=== PATIENT | female | born 1950 | race Caucasian/White ===

== ENCOUNTER → 2018-12-03 | Outpatient (CLI) | payer MEDICARE, BC ==
[~2018-12-03] MED LIST: ASPI81EC PO; ATOR40TA PO; CALCAVITD PO; CIPR500 PO; EZET10 PO; FAMO20 PO; FLAX PO; IBUP600 PO; INSULANI SC; INSULANPEN SC; LISI10 PO; METF500 PO; MULVITB PO; MULVITMINF PO; Norco 5-325 Ta1 EACH PO; PHENA200 PO; REPATHA SU140 MG/1 M SQ; RXHYDACE PO; SUPER OMEGA PO; TOUJEO SOL300 UNIT/1 SQ; TRULICITY0.75 MG/0. INJ; Zofran Odt4 MG SL
== END | disposition home or self-care (01) ==
LOC: PLD 08:02 → LAB SHORT 08:02
DX: L57.0 Actinic keratosis (principal)
CPT/HCPCS: 88305

== ENCOUNTER → 2018-12-30 | Outpatient (CLI) | payer MEDICARE, BC | END | disposition home or self-care (01) | LOC: PLD 14:22 → LAB SHORT 14:22 | DX: L57.0 Actinic keratosis (principal); C44.629 Squamous cell carcinoma of skin of left upper limb, including shoulder | CPT/HCPCS: 88305 ==

== ENCOUNTER 2020-01-28 00:50 | Emergency (ER) | payer MEDICARE, BC ==
[~2020-01-28] VITALS: Ht 157.5 cm; Wt 77.1 kg
[2020-01-28] MEDS ORDERED: REPATHA SU140 MG/1 M SC (01:29)
[2020-01-28] MEDS ORDERED: TOUJEO SOL300 UNIT/1 SC (01:30)
[2020-01-28] MEDS ORDERED: LISI20 PO (01:31)
[2020-01-28] MEDS ORDERED: Metformin HCl750 MG PO (01:31)
[2020-01-28] MEDS ORDERED: EUTHYROX25 MC1 PO (01:32)
[2020-01-28 01:50] LABS: Source, Urine Clean Catch
[2020-01-28 01:55] LABS: Bilirubin, Urine Neg (Neg); Blood, Urine 5+ (Neg); Glucose Qualitative, Urine Neg (Neg); Ketones, Urine Neg (Neg); Leukocyte Esterase, Urine 1+ (Neg); Nitrite, Urine Pos (Neg); Protein, Urine 3+ (Neg); Specific Gravity, Urine 1.025 (1.003-1.022); Urobilinogen, Urine NORM (Normal)
[2020-01-28 02:01] LABS: Appearance, Urine Hazy (Clear); Color, Urine Yellow (P-Yellow)
[2020-01-28 02:05] LABS: BASOPHILS ABSOLUTE AUTO 0.04 K/mm3 (0.00-0.23); BASOPHILS PERCENT AUTO 0 % (0-2); EOSINOPHILS ABSOLUTE AUTO 0.09 K/mm3 (0.00-0.68); EOSINOPHILS PERCENT AUTO 1 % (0-6); Hematocrit 40.1 % (33.0-51.0); Hemoglobin 13.1 g/dL (11.5-16.0); IMMATURE GRAN ABSOLUTE AUTO 0.06 K/mm3 (0.00-0.10); IMMATURE GRAN PERCENT AUTO 0 % (0-1); LYMPHOCYTES PERCENT AUTO 16 % (21-46); MONOCYTES ABSOLUTE AUTO 0.72 K/mm3 (0.16-1.47); MONOCYTES PERCENT AUTO 5 % (4-13); Mean Corpuscular HGB 31.3 pg (26.0-34.0); Mean Corpuscular HGB Conc 32.7 g/dL (31.5-36.5); Mean Corpuscular Volume 96 fL (80-100); Mean Platelet Volume 9.8 fL (9.1-12.4); NEUTROPHILS PERCENT AUTO 78 % (41-73); Platelet Count 221 K/mm3 (150-400); RDW Coefficient Variation 13.2 % (11.7-14.2); RDW Standard Deviation 46.6 fL (35.1-46.3); Red Blood Cell Count 4.18 M/mm3 (3.80-5.20); White Blood Cell Count 15.11 K/mm3 (4.00-11.30)
[2020-01-28 02:08] LABS: Bacteria Many /hpf; Squamous Epithelial Cells Not Seen /hpf (Few); White Blood Cells, Urine TNTC /hpf (0-5)
[2020-01-28 02:24] LABS: Alanine Aminotransfer (ALT/SGP 43 U/L (12-78); Albumin, Blood 3.7 g/dL (3.4-5.0); Albumin/Globulin Ratio 0.9 (0.8-1.8); Alk Phos 117 U/L (50-136); Anion Gap 4 mmol/L (6-16); Aspartate Aminotrans (AST/SGOT 24 U/L (12-37); Bilirubin, Total 0.3 mg/dL (0.1-1.0); Blood Urea Nitrogen 23 mg/dL (8-24); Bun/Creatinine Ratio 30.5 (12.0-20.0); CO2, Blood 26 mmol/L (21-32); Calcium, Blood 9.1 mg/dL (8.5-10.1); Chloride, Blood 107 mmol/L (98-108); Creatinine, Blood 0.75 mg/dL (0.40-1.00); Glomerular Filtration Rate >60 (60-); Glucose, Blood 181 mg/dL (70-99); Potassium, Blood 4.3 mmol/L (3.5-5.5); Sodium, Blood 137 mmol/L (136-145); Total Protein, Blood 7.7 g/dL (6.4-8.2)
[2020-01-28] MEDS ORDERED: CEFP200 PO (03:59)
== END 2020-01-28 04:30 | disposition home or self-care (01) ==
LOC: ER 00:50
PROVIDERS: Emergency Medicine
DX: N39.0 Urinary tract infection, site not specified (principal); I10 Essential (primary) hypertension; E11.9 Type 2 diabetes mellitus without complications; E78.00 Pure hypercholesterolemia, unspecified; Z88.2 Allergy status to sulfonamides; Z79.82 Long term (current) use of aspirin; Z79.4 Long term (current) use of insulin; Z79.899 Other long term (current) drug therapy
CPT/HCPCS: 36415; 74176; 80053; 81001; 83690; 85025; 87077; 87086; 87186; 96365; 96375; 99284-25; A9270; A9270-GY; J0696; J1170; J1885; J2405

== ENCOUNTER 2021-01-08 08:29 | Emergency (ER) | payer MEDICARE, BC ==
[~2021-01-08] VITALS: Ht 157.5 cm; Wt 79.4 kg
[~2021-01-08 08:29] MED LIST changes: +CEFP200 PO; +EUTHYROX25 MC1 PO; +LISI20 PO; +Metformin HCl750 MG PO; +REPATHA SU140 MG/1 M SC; +TOUJEO SOL300 UNIT/1 SC
[2021-01-08] MEDS ORDERED: Norco 5-325 Ta1 EACH PO (10:14)
== END 2021-01-08 10:25 | disposition home or self-care (01) ==
LOC: ER 08:29
DX: S93.401A Sprain of unspecified ligament of right ankle, initial encounter (principal); E11.9 Type 2 diabetes mellitus without complications; I10 Essential (primary) hypertension; E78.5 Hyperlipidemia, unspecified; Z88.2 Allergy status to sulfonamides; Z79.84 Long term (current) use of oral hypoglycemic drugs; Z79.899 Other long term (current) drug therapy; Z79.4 Long term (current) use of insulin; W19.XXXA Unspecified fall, initial encounter; Y93.01 Activity, walking, marching and hiking
CPT/HCPCS: 73610; 99283-25

== ENCOUNTER → 2021-01-18 | Outpatient (CLI) | payer MEDICARE, BC | END | disposition home or self-care (01) | LOC: LAB SHORT 12:56 → LAB 12:56 | DX: M79.81 Nontraumatic hematoma of soft tissue (principal) | CPT/HCPCS: 88305 ==

== ENCOUNTER → 2021-06-30 | Outpatient (CLI) | payer MEDICARE, BC ==
[2021-06-30 16:54] LABS: Campylobacter Sp Not Detected (NOT DETECT); Plesiomonas Shigelloides Not Detected (NOT DETECT); Salmonella Sp Not Detected (NOT DETECT); Vibrio Cholerae Not Detected (NOT DETECT); Vibrio Sp Not Detected (NOT DETECT); Yersinia Enterocolitica Not Detected (NOT DETECT)
[2021-06-30 16:55] LABS: Adenovirus F 40/41 Not Detected (NOT DETECT); Astrovirus Not Detected (NOT DETECT); Cryptosporidium Not Detected (NOT DETECT); Cyclospora Cayetanensis Not Detected (NOT DETECT); E. Coli O157 Not Detected (NOT DETECT); Entamoeba Histolytica Not Detected (NOT DETECT); Enteroaggregative E. coli-EAEC Not Detected (NOT DETECT); Enteropathogenic E. coli-EPEC Not Detected (NOT DETECT); Enterotoxigenic E. coli-ETEC Not Detected (NOT DETECT); Giardia Lamblia Not Detected (NOT DETECT); Norovirus GI/GII Not Detected (NOT DETECT); Rotavirus A Not Detected (NOT DETECT); Sapovirus Not Detected (NOT DETECT); Shiga Toxin-prod E. coli-STEC Not Detected (NOT DETECT); Shigella/Enteroin E. coli-EIEC Not Detected (NOT DETECT)
== END | disposition home or self-care (01) ==
LOC: LAB SHORT 09:30
PROVIDERS: Surgery
DX: R19.7 Diarrhea, unspecified (principal)
CPT/HCPCS: 0097U

== ENCOUNTER 2021-08-03 09:45 | Day surgery (SDC) | payer MEDICARE, BC ==
[~2021-08-03] VITALS: Ht 157.5 cm; Wt 74.1 kg
[~2021-08-03 09:45] MED LIST changes: +ANASPAZ0.125 MG PO; +Amlodipine Bes2.5 MG PO; -TRULICITY0.75 MG/0. INJ; +TRULICITY3 MG/0.5 M SC
--- NOTE | 2021-08-03 11:47 | NUR ---
08/03/21 1147 Kristina Gordon History, Chart, Medications and Allergies reviewed before start of procedure. MONITOR INTACT WITH CONTINUOUS PULSE OXIMETRY AND INTERMITTENT BP.3-LEAD EKG REVIEWED WITH PHYSICIAN PRIOR TO START OF PROCEDURE.O2 VIA N/C INTACT THROUGHOUT SEDATION/PROCEDURE. See Anesthesia record.
--- NOTE | 2021-08-03 12:53 | NUR ---
Patient up to Ambulate independently. Gait steady. Discharge instructions reviewed with patient. Patient verbalizes understanding. Copy given to patient to take home. DISCUSSED WITH WELL. Patient States Post-Procedure ride home has been arranged. Discharged via wheelchair to private car for ride home. PT HAD 600 IVF. PT DENIES DIZZINESS, N/V. ORTHOSTATIC VS WERE COMPLETED AND APPEARED WNL.
== END 2021-08-03 12:53 | disposition home or self-care (01) ==
LOC: ORSCMMR 09:45 → ORD 11:30 → ORSCMMR 12:53
PROVIDERS: Surgery
PROC: 0DBE8ZX Excision of Large Intestine, Via Natural or Artificial Opening Endoscopic, Diagnostic (ICD-10-PCS; principal; 2021-08-03 11:30)
DX: R19.7 Diarrhea, unspecified (principal); Z86.010 Personal history of colon polyps; K63.89 Other specified diseases of intestine; I10 Essential (primary) hypertension; G47.33 Obstructive sleep apnea (adult) (pediatric); E11.9 Type 2 diabetes mellitus without complications; E78.5 Hyperlipidemia, unspecified; E03.9 Hypothyroidism, unspecified; Z79.4 Long term (current) use of insulin; Z79.899 Other long term (current) drug therapy; Z79.82 Long term (current) use of aspirin
CPT/HCPCS: 82947; 88305; J2405; J2704; J7120